=== PATIENT | female | born 1975 | race Two or more races ===

== ENCOUNTER 2020-09-18 06:12 | Day surgery (SDC) | payer OTHER | END 2020-09-18 19:20 | disposition home or self-care (01) | LOC: CIR.AMB 06:12 | PROVIDERS: ATTEND Surgery | DX: D05.11 Intraductal carcinoma in situ of right breast (principal); Z90.11 Acquired absence of right breast and nipple; Z20.822 Contact with and (suspected) exposure to COVID-19 | CPT/HCPCS: 19357; 19301; 38525; 38792; 14000; C1789 ==

== ENCOUNTER 2020-10-03 20:56 | Emergency (ER) | payer OTHER ==
[~2020-10-03] VITALS: Ht 170.2 cm; Wt 113.4 kg
[2020-10-03] MEDS ORDERED: TYLENOL325 MG (21:21)
== END 2020-10-03 22:39 | disposition home or self-care (01) ==
LOC: ER 20:56
DX: R60.0 Localized edema (principal)

== ENCOUNTER 2021-04-09 05:34 | Day surgery (SDC) | payer OTHER ==
[~2021-04-09 05:34] MED LIST: ANASTROZOLE1 MG PO; TYLENOL325 MG
== END 2021-04-09 13:50 | disposition home or self-care (01) ==
LOC: CIR.AMB 05:34
PROVIDERS: ATTEND Surgery
DX: D24.2 Benign neoplasm of left breast (principal); Z85.3 Personal history of malignant neoplasm of breast; Z42.1 Encounter for breast reconstruction following mastectomy

== ENCOUNTER 2021-11-22 07:45 | Inpatient (IN) | payer OTHER ==
[~2021-11-22] VITALS: Ht 170.2 cm; Wt 115.2 kg
== END 2021-11-27 11:59 | disposition home or self-care (01) | DRG 743 ==
LOC: OB/GYN 11-24 07:45 → O/R 11-24 10:39 → OB/GYN 11-24 18:52
PROVIDERS: ADMIT Obstetrics & Gynecology; ATTEND Obstetrics & Gynecology
PROC: 0UT70ZZ Resection of Bilateral Fallopian Tubes, Open Approach (ICD-10-PCS; 2021-11-24)
PROC: 0UT20ZZ Resection of Bilateral Ovaries, Open Approach (ICD-10-PCS; 2021-11-24)
PROC: 0UT90ZZ Resection of Uterus, Open Approach (ICD-10-PCS; principal; 2021-11-24 09:45)
DX: D25.1 Intramural leiomyoma of uterus (principal); N72 Inflammatory disease of cervix uteri; Z20.822 Contact with and (suspected) exposure to COVID-19

== ENCOUNTER 2022-04-22 05:50 | Day surgery (SDC) | payer OTHER | END 2022-04-22 12:50 | disposition home or self-care (01) | LOC: CIR.AMB 05:50 | PROVIDERS: ATTEND Plastic Surgery | DX: Z90.13 Acquired absence of bilateral breasts and nipples (principal); Z85.3 Personal history of malignant neoplasm of breast; N60.32 Fibrosclerosis of left breast; N60.31 Fibrosclerosis of right breast; E66.09 Other obesity due to excess calories | CPT/HCPCS: 19342; 11971; C1789 ==